=== PATIENT | female | born 1990 | race Two or more races ===

== ENCOUNTER 2018-12-05 06:36 | Day surgery (SDC) | payer OTHER ==
--- NOTE | 2018-12-04 17:58 | Pre-Procedure Note/Attestation ---
Pre-Procedure Note/Attestation Complete Prior to Procedure Planned Procedure: right Procedure Narrative: 1. Reconstruction right nasal valve 2. Left post auricular graft Indications for Procedure Pre-Operative Diagnosis: Right nasal valve scarring and collapse Attestation I attest that I discussed the nature of the procedure; its benefits; risks and complications; and alternatives (and the risks and benefits of such alternatives ), prior to the procedure, with the patient (or the patient's legal sales representative [employer]). I attest that, if there was a reasonable possibility of needing a blood transfusion, the patient (or the patient's legal sales representative [place] [employer]) was given the [facility] standardized written summary, pursuant to the [place] Haci Blood Safety Act ([place] Health and Safety Code # 1645, as amended). I attest that I re-evaluated the patient just prior to the surgery and that there has been no change in the patient's H&P. Aashish Quevedo MD Dec 04, 2018 17:58
--- NOTE | 2018-12-04 18:00 | Brief Operative Note ---
Immediate Post Operative Note Operative Note Chief Complaint: Nasal airway obstruction Pre-op Diagnosis: Right nasal valve scarring and collapse Procedure: 1. Reconstruction right nasal valve 2. Left post auricular graft Post-op Diagnosis: same as pre-op Surgeon: Aashish Quevedo MD Taxi Servicer: none Additional Surgeons: none Anesthesiologist: Dr. Lara DRISCOLL Anesthesia: general Specimen: none Complications: none Condition: stable Fluids: D5LR Estimated Blood Loss: volume - 10 cc Drains: none Packing: Sino-nasal gel Implant(s) used?: No Aashish Quevedo MD Dec 04, 2018 18:00
--- NOTE | 2018-12-04 18:05 | Discharge Instructions ---
Discharge Instructions Discharge Instructions Follow up with: 12/12/18 11:30AM Diet: regular Resume Normal Activity?: No Activity: light activity Pneumonia Vaccine: pt refused vaccine Influenza Vaccine (Jan to Jun): pt refused vaccine Follow Up Orders Pt has printed post op instructions and Rx which were discussed and given to her at her pre op visit. Return to Work/School on: Dec 19, 2018 Special Instructions ice to face x 48 hours. For Surgical Patients Dressing Care: may change May shower: No For Congestive Heart Failure Reminder Report to your physician any weight gain of 5 pounds or more in one week. Aashish Quevedo MD Dec 04, 2018 18:05
--- NOTE | 2018-12-04 18:13 | History and Physical ---
History & Physical (DB) History & Physical History & Physical Chief Complaint: Right nasal airway obstruction post septoplasty elsewhere. Reason for Hospitalization: outpt. surgery History obtained from: Chart and Patient HPI: is a 28 year old female who presents with right nasal airway scarring. Past Medical History:Septoplasty Social History:Single, no children Past Medical History:unremarkable Diagnosis:Scar tissue right nasal valve with collapse of nasal valve on right. Social History Main Topics: Smoking status:0 Smokeless tobacco:0 Alcohol use:social light Drug use:0 Family History:DM, CVD Allergies:PCN-hives Medications: Review of Symptoms: General ROS: no weight loss or fever Psychological ROS: no depression or mood changes, no memory loss Ophthalmic ROS: no visual changes or eye irritation ENT ROS: nasal congestion RIGHT NARES, hearing loss, dizziness Allergy and Immunology ROS: no allergic symptoms or urticaria Hematological and Lymphatic ROS: no swollen glands, unusual bleeding or bruising Endocrine ROS: no polyuria, polydipsia, weight changes, temperature intolerance Respiratory ROS: no cough, shortness of breath, or wheezing Cardiovascular ROS: no chest pain or dyspnea on exertion Gastrointestinal ROS: no abdominal pain, change in bowel habits, or black or bloody stools Musculoskeletal ROS: no myalgias or arthralgias Neurological ROS: no TIA or stroke symptoms Dermatological ROS: no new or changing skin lesions, rashes or pruritis Physical Exam Vitals: Intake/Output Summary (Last 24 hours) General appearance: alert, cooperative, no distress, appears stated age Head: Normocephalic, without obvious abnormality, atraumatic NOSE: SCARRING AND LOSS OF SUPPORT RIGHT NASAL VALVE. Eyes: conjunctivae/corneas clear. PERRL, EOM's intact. Throat: Lips, mucosa, and tongue normal. Teeth and gums normal Neck: supple, symmetrical, trachea midline, no adenopathy, thyroid: not enlarged, symmetric, no tenderness/mass/nodules, no carotid bruit and no JVD Lungs: clear to auscultation bilaterally Heart: regular rate and rhythm, S1, S2 normal, no murmur, click, rub or gallop Abdomen: soft, non-tender. Bowel sounds normal. No masses, no organomegaly Extremities: extremities normal, atraumatic, no cyanosis or edema Pulses: 2+ and symmetric Skin: Skin color, texture, turgor normal. No rashes or lesions Neurologic: Grossly normal Laboratories:None required =otherwise healthy female under 45 years old. Estimated:60 minutes Imaging and ancillary data: none Assessment/Problem List: RIGHT NASAL VALVE COLLAPSE SECONDARY TO SCARRING. Plan: 1. Reconstruction of right nasal valve 2. Left post auricular graft DVT Prophylaxis: scd Code status: full Hospital Classification declaration: Based on this initial evaluation, and depending on the patient's clinical course, I anticipate that this patient will NOT require hospitalization. Disposition: Once the patient is stable to leave the hospital, I anticipate the patient will likely be discharged to the following environment-Home I spent 70 minutes on this patient's case, and minutes was dedicated to counseling and/or care coordination. Case was discussed with Time of note may not reflect time of encounter. Aashish Quevedo MD Dec 04, 2018 18:13
[~2018-12-05] VITALS: Ht 167.6 cm; Wt 73.5 kg
[2018-12-05] VITALS (10 sets, daily range): BP systolic 115–136; BP diastolic 65–86
[2018-12-05] MEDS ORDERED: Cocaine HCl 4% 4ml vial TOPIC ONE (07:00)
[2018-12-05] MEDS ORDERED: Bacitracin Oint 15gm Tube TOPIC ONE (07:00)
[2018-12-05] MEDS ORDERED: Lidocaine 1% 10mg/ml/Epi 0.005mg/ml 30ml vial INJ ONE (07:00)
[2018-12-05] MEDS ORDERED: Bupivacaine w/Epi 0.5% 30ml Vial INJ ONE (07:00)
[2018-12-05] MEDS ORDERED: Lidocaine 1% Plain 30 ml INJ ONE (07:01)
[2018-12-05] MEDS ORDERED: birth control pill PO (07:05)
[2018-12-05] MEDS ORDERED: Midazolam 2mg/2ml Inj ONE (07:13)
[2018-12-05] MEDS ORDERED: fentaNYL 100 mcg/2 mL IV ONE (07:13)
[2018-12-05] MEDS ORDERED: Ketorolac 30mg Inj ONE (07:17)
[2018-12-05] MEDS ORDERED: Lidocaine 1% MPF 10mg/ml 5ml ONE (07:17)
[2018-12-05] MEDS ORDERED: Propofol 200mg/20ml IV ONE (07:17)
[2018-12-05] MEDS ORDERED: ceFAZolin sod 1 GM in D5W 55 ML IV ONE (07:20)
[2018-12-05] MEDS ORDERED: Azithromycin 500 MG in NS 275 ML IV ONE (07:20)
[2018-12-05] MEDS ORDERED: LR 1000ml ONE (07:30)
[2018-12-05] MEDS ORDERED: Sterile Water Irrig 1000ml IRRIG ONE (07:30)
[2018-12-05] MEDS ORDERED: Dexamethasone 4mg/ml vial IVP ONE (07:30)
[2018-12-05] MEDS ORDERED: NS Irrig 1000ml ONE (07:30)
[2018-12-05] MEDS ORDERED: TransDerm Scop 1.5mg/72HR Patch TDERMAL ONE ×2 (07:31→08:15)
[2018-12-05] MEDS ORDERED: Dexamethasone 4mg/ml vial ONE (07:55)
[2018-12-05] MEDS ORDERED: LR 1000ml 1,000 ML IVLG SCH (08:10)
--- NOTE | 2018-12-05 08:10 | Anethesia Preoperative Eval ---
Anesthesia Pre-op PMH/ROS General Date of Evaluation: Dec 05, 2018 Time of Evaluation: 07:20 Anesthesiologist: Joni ASA Score: ASA 2 Mallampati Score Class I : Soft palate, uvula, fauces, pillars visible Class II: Soft palate, uvula, fauces visible Class III: Soft palate, base of uvula visible Class IV: Only hard plate visible Mallampati Classification: Class II Surgeon: Emy Diagnosis: Incompetent nasal valve Surgical Procedure: revision of septoplasty Anesthesia History: none Family History: no anesthesia problems Allergies: Coded Allergies: PENICILLINS (Verified Allergy, Intermediate, Itching, 12/04/18) Medications: see eMAR Patient NPO?: Yes Past Medical History Cardiovascular: Denies: HTN, CAD, [place], valve dz, arrhythmia, other Pulmonary: Denies: asthma, COPD, JENNIFER, other Gastrointestinal/Genitourinary: Reports: GERD - mild; Denies: CRI, ESRD, other Neurologic/Psychiatric: Denies: dementia, CVA, depression/anxiety, TIA, other Endocrine: Denies: DM, hypothyroidism, steroids, other HEENT: Denies: cataract (L), cataract (R), glaucoma, IROQUOIS (L), IROQUOIS (R), other Hematology/Immune: Denies: anemia, DVT, bleeding disorder, other Musculoskeletal/Integumentary: Denies: OA, RA, DJD, DDD, edema, other PMH Narrative: as above PSxH Narrative: Septoplasty Anesthesia Pre-op Phys. Exam Physician Exam Last Vital Signs Date Time Temp Pulse Resp B/P (MAP) Pulse Ox O2 Delivery O2 Flow Rate FiO2 12/05/18 07:07 Room Air 12/05/18 07:02 97.0 59 18 136/76 100 Constitutional: NAD Neurologic: CN 2-12 intact Cardiovascular: RRR, no M/R/G Respiratory: CTA Gastrointestinal: S/NT/ND Airway Exam Mallampati Score: Class II MO: full Neck: flexible ROM: full Teeth: intact Dentures: no upper, no lower Anesthesia Pre-op A/P Labs Chemistry Test 12/05/18 07:00 Human Chorionic Gonadotropin, Qual Negative (NEGATIVE) Serum Test Test 12/05/18 07:00 Human Chorionic Gonadotropin, Qual Negative (NEGATIVE) Risk Assessment & Plan Assessment: ASA 2 Plan: GA with LMA Status Change Before Surgery: No Pre-Antibiotics Drug: Azytromax 500mg Given Within 1 Hr of Incision: Yes Time Given: 08:02 Alexei Quinones MD Dec 05, 2018 08:10
[2018-12-05] MEDS ORDERED: Metoclopramide 10mg/2ml Inj IVP PRN ×2 (08:15→08:45)
[2018-12-05] MEDS ORDERED: DiphenhydrAMINE 50mg/ml Inj IVP PRN (08:15)
[2018-12-05] MEDS ORDERED: Meperidine 50mg/ml Inj(FOR RIGORS ONLY) IV PRN (08:15)
[2018-12-05] MEDS ORDERED: Ketorolac 30mg Inj IV PRN (08:15)
--- NOTE | 2018-12-05 08:30 | Immediate Post-Op Evaluation ---
Immediate Post-Op Evalulation Immediate Post-Op Evalulation Procedure: Revision of septoplasty, R nasal valve repair Date of Evaluation: Dec 05, 2018 Time of Evaluation: 08:29 IV Fluids: 600 Blood Products: n0ne Estimated Blood Loss: min Urinary Output: none Blood Pressure Systolic: 118 Blood Pressure Diastolic: 64 Pulse Rate: 76 Respiratory Rate: 20 O2 Sat by Pulse Oximetry: 99 Temperature (Fahrenheit): 97.5 Pain Score (1-10): 1 Nausea: No Vomiting: No Complications none Patient Status: awake, patent, none Hydration Status: adequate Alexei Quinones MD Dec 05, 2018 08:30
[2018-12-05] MEDS ORDERED: HYDROmorphone 1mg/ml Carpuject SUBQ PRN (08:45)
[2018-12-05] MEDS ORDERED: HYDROcodone/Acetamin 5/325 tab ORAL PRN (08:45)
--- NOTE | 2018-12-05 09:03 | 48 Hour Post Anesthesia Eval ---
Post Anesthesia Evaluation Procedure: Revision of septoplasty, R nasal valve repair Date of Evaluation: Dec 05, 2018 Time of Evaluation: 09:02 Blood Pressure Systolic: 116 0: 72 Pulse Rate: 68 Respiratory Rate: 20 Temperature (Fahrenheit): 97.5 O2 Sat by Pulse Oximetry: 98 Airway: patent Nausea: No Vomiting: No Pain Intensity: 1 Hydration Status: adequate Cardiopulmonary Status: stable Mental Status/LOC: patient returned to baseline Follow-up Care/Observations: n/a Post-Anesthesia Complications: none Follow-up care needed: ready to discharge Alexei Quinones MD Dec 05, 2018 09:03
--- NOTE | 2018-12-05 19:00 | Operative Note - Dictated ---
DATE OF OPERATION: 12/05/2018 SURGEON: Aashish Quevedo M.D. CURRICULUM COACH: None. ANESTHESIOLOGIST: Dr. Mata. ANESTHESIA: LMA general anesthesia 7 mL of 1% lidocaine with epinephrine, Marcaine 0.5% with 1:200,000 epinephrine, and a 50:50 mixture. Additionally 4 mL of 4% topical cocaine placed in the right naris on pledget. PREOPERATIVE DIAGNOSIS: Right nasal valve collapse and scarring. POSTOPERATIVE DIAGNOSIS: Right nasal valve collapse and scarring. FINDINGS: Right nasal valve collapse and scarring. PROCEDURE: Reconstruction of right nasal valve with a left postauricular graft. TECHNIQUE: The patient was prepped and draped in usual manner. A time-out was performed. All agreed as to the procedure and equipment required. The patient was under LMA general anesthesia. A time-out had been performed. An incision was made with a 15 blade behind the left auricle and the erica. I then proceeded to clean off the perichondrium and cm sliver by 0.5 cm cartilage. This was closed with a 5-0 running Prolene suture. Antibiotic ointment, Band-Aid was placed on this. I then made an incision between the cartilage from the right nostril. I made a pocket with a small Metzenbaum scissors. I then placed the graft in with the convex part of the graft lateral. I then sewed this in place with four 5-0 plain sutures each single. Stammberger nasal gel was placed. ESTIMATED BLOOD LOSS: 10 mL. COUNTS: None. DRAINS: None. The patient was extubated, stable, alert prior to transfer to the recovery room. A 45 minutes later when I am dictating this, she is stable in the recovery room. Aashish Quevedo M.D. : LING JOB#: [id number] CC:
== END 2018-12-05 09:55 | disposition home or self-care (01) ==
LOC: SUR 06:36
DX: M95.0 Acquired deformity of nose (principal); Z88.0 Allergy status to penicillin; K21.9 Gastro-esophageal reflux disease without esophagitis
CPT/HCPCS: 21235; 30465; 36415; 84703; J0456; J0690; J1100; J1885; J2250; J2405; J2704; J3010; J7050; 94003; 94150